=== PATIENT | female | born 1985 | race Caucasian/White ===

== ENCOUNTER → 2018-05-20 11:50 | Outpatient (CLI) | payer OTHER, MEDICAID, SELFPAY ==
--- NOTE | 2018-05-20 | DI.MRI.S_ITS ---
PROCEDURE: MR HEAD/BRAIN WO/W CON INDICATIONS: [place] TECHNIQUE: Noncontrast sagittal T1 spin echo, axial T2 fast spin echo, axial FLAIR, axial gradient echo, axial diffusion and ADC through the brain. Axial/sagittal/coronal 3-D CISS, thin-slice axial T1 spin echo with fat saturation through the skull base. After the administration of contrast, axial and coronal thin-slice T1 spin echo with fat saturation through the skull base, axial T1 spin echo with fat saturation through the brain. COMPARISON: [facility], MR, BRAIN (IAC) W&WO CONTRAST, 02/15/2016, 11:58. [facility], brain IAC protocol 05/29/14 FINDINGS: Image quality: Diagnostic, with note made of motion artifact. Trigeminal nerves: The trigeminal nerves demonstrate a normal, symmetric appearance. Abnormal enhancement can be seen along the courses. The Meckel's caves are unremarkable. No masses can be seen within the internal auditory canals or within the cerebellopontine angle cisterns. There is again seen a mild amount of asymmetric enhancement involving the basal turn of the right cochlea. This is not significantly changed compared to the prior examinations. CSF spaces: Ventricles are normal in size and shape. No extra-axial fluid collections. Basal cisterns are patent. Brain: No intracranial bleeds or mass effects. No abnormal intracranial enhancement. Diffusion weighted images show no acute ischemic insults. Duncan-white matter interface is intact. Brainstem is normal. Normal intravascular flow voids are present. Skull and face: Calvarial marrow signal is normal. Orbits appear normal. Sinuses: Sinuses and mastoids appear clear. IMPRESSION: Stable enhancement again seen involving the basal turn of the right cochlea. Dictated by: Ham Johnson M.D. on 05/20/2018 at 13:09 Approved by: Ham Johnson M.D. on 05/20/2018 at 13:17
== END ==
PROVIDERS: PCP Family Medicine; Visit Provider Otolaryngology Otology & Neurotology
DX: D36.10 Benign neoplasm of peripheral nerves and autonomic nervous system, unspecified (principal)
CPT/HCPCS: 70553; A9579

== ENCOUNTER → 2019-01-10 14:08 | Outpatient (CLI) | payer OTHER, MEDICAID, SELFPAY ==
--- NOTE | 2019-01-10 | DI.US.S_ITS ---
PROCEDURE: US PELVIC COMPLETE INDICATIONS: PAIN; HISTORY OVARIAN CYSTS TECHNIQUE: Real-time scanning was performed of the pelvic organs, with image documentation. Additional endovaginal scanning was necessary due to incomplete visualization of the adnexal and endometrial structures by transabdominal scanning. COMPARISON: CT, ABDOMEN/PELVIS WITH CONTRAST, 10/29/2007, 10:03. [facility], US, PELVIC COMPLETE, 10/16/2007, 7:57. FINDINGS: Transabdominal scanning: Limited scanning through the kidneys shows no hydronephrosis. No pathologic free abdominal or pelvic fluid. Endovaginal scanning: Uterus: Uterus is normal in size at 6.6 x 2.8 x 4.4 cm. The endometrium is not well seen secondary to IUD in expected position. Ovaries: Ovaries normal bilaterally measuring 2.8 x 1.9 x 2.9 cm on the right and 3.2 x 1.6 x 2.7 cm on the left. IMPRESSION: Intrauterine device in expected position and the ovaries are normal bilaterally. Dictated by: Cyril GARCIA Interpreted: Anette Dubon MD on 01/10/2019 at 15:17 Approved by: Anette Dubon M.D. on 01/10/2019 at 17:02
== END ==
PROVIDERS: PCP Family Medicine; Visit Provider Physician Assistant Medical
DX: R10.2 Pelvic and perineal pain (principal); N83.209 Unspecified ovarian cyst, unspecified side; Z97.5 Presence of (intrauterine) contraceptive device
CPT/HCPCS: 76830; 76856

== ENCOUNTER → 2019-01-22 15:33 | Outpatient (CLI) | payer OTHER, MEDICAID, SELFPAY ==
--- NOTE | 2019-01-22 | DI.US.S_ITS ---
PROCEDURE: US ABDOMEN COMPLETE INDICATIONS: Unspecified abdominal pain TECHNIQUE: Real-time scanning was performed of the abdominal and retroperitoneal organs, with image documentation. COMPARISON: None. FINDINGS: Liver: Liver is normal in size and homogeneous in echotexture, mildly hyperechoic consistent with fatty infiltration. Gallbladder: The gallbladder appears normal Biliary ducts: Intrahepatic bile ducts are non-dilated. Extrahepatic bile duct caliber measures 3.1 mm. Normal is 6-7 mm or less in diameter, or 10 mm or less post-cholecystectomy. Pancreas: Visualized portions of the pancreas are sonographically normal. Spleen: Spleen is normal in size and homogeneous in echotexture. Kidneys: Kidneys are normal in size and echotexture. Right kidney measures 11.0 cm long; left kidney measures 10.8 cm long. No hydronephrosis or nephrolithiasis. No solid masses. Aorta: Visualized aorta is normal in caliber at less than 3 cm. Iliacs: Proximal common iliac arteries are normal in caliber at less than 2.5 cm. IVC: Intrahepatic inferior vena cava is patent. Miscellaneous: No free abdominal fluid. IMPRESSION: Appendix not seen. Slight fatty infiltration within the liver. No acute disease. Dictated by: Jimy Colon M.D. on 01/22/2019 at 16:47 Approved by: Jimy Colon M.D. on 01/22/2019 at 16:48
== END ==
PROVIDERS: PCP Family Medicine; Visit Provider Physician Assistant Medical
DX: R10.31 Right lower quadrant pain (principal)
CPT/HCPCS: 76700

== ENCOUNTER → 2023-11-13 13:05 | Outpatient (CLI) | payer OTHER, MEDICAID, SELFPAY ==
--- NOTE | 2023-11-13 13:14 | DI.CT.S_ITS ---
PROCEDURE: CT SINUS SCREEN WO CON INDICATIONS: CHRONIC SINUSITIS TECHNIQUE: Noncontrast 3.0 mm axial images acquired from the frontal sinuses to the mid-sella, with coronal and sagittal reformats. For radiation dose reduction, the following was used: automated exposure control, adjustment of mA and/or kV according to patient size. COMPARISON: [facility], MR, MR HEAD/BRAIN WO/W CON, 05/20/2018, 12:12. FINDINGS: Image quality: Excellent. Maxillary Sinuses: No bony remodeling or destruction. Sinuses are clear. Ethmoid Air Cells: No bony remodeling or destruction. Sinuses are clear. Sphenoid Sinuses: No bony remodeling or destruction. Sinuses are clear. Frontal Sinuses: No bony remodeling or destruction. Sinuses are clear. Ostiomeatal Complexes: Ostiomeatal complexes are patent, yet they are highly constitutionally narrowed. No Maida cells. Miscellaneous: Visualized intra-orbital contents are normal. There is a right-sided priscilla bullosa. There is mild rightward nasal septal deviation. IMPRESSION: No significant active paranasal sinus disease is seen. The ostiomeatal complexes are patent, yet they are highly constitutionally narrowed. There is a right-sided priscilla bullosa is seen. Rightward nasal septal deviation is also seen. Dictated by: Ham Johnson M.D. on 11/13/2023 at 12:44 Approved by: Ham Johnson M.D. on 11/13/2023 at 12:46
== END ==
PROVIDERS: PCP Family Medicine; Referring Provider Family Medicine; Visit Provider Family Medicine
DX: J32.9 Chronic sinusitis, unspecified (principal); J34.2 Deviated nasal septum; J34.3 Hypertrophy of nasal turbinates
CPT/HCPCS: 70486